=== PATIENT | female | born 1965 | race Caucasian/White ===

== ENCOUNTER 2023-10-23 16:08 | Emergency (ER) | payer MEDICAID ==
[~2023-10-23] VITALS: Ht 172.7 cm; Wt 105.2 kg
[2023-10-23 18:47] VITALS: BP 148/73; PULSE 80; RESP 18; TEMP 98.1; O2SAT 96
[2023-10-23] MEDS: KETOROLAC TROMETH 60MG/2ML VIAL IM ONE (19:09)
== END 2023-10-23 19:56 | disposition home or self-care (01) ==
LOC: ER 16:08
DX: S46.001A Unspecified injury of muscle(s) and tendon(s) of the rotator cuff of right shoulder, initial encounter (principal); E11.9 Type 2 diabetes mellitus without complications; I10 Essential (primary) hypertension; M54.2 Cervicalgia; X58.XXXA Exposure to other specified factors, initial encounter; Y93.89 Activity, other specified; Y92.89 Other specified places as the place of occurrence of the external cause; Y99.8 Other external cause status
CPT/HCPCS: 96372; 99283; J1885

== ENCOUNTER 2025-01-21 08:45 | Emergency (ER) | payer MEDICAID ==
[~2025-01-21] VITALS: Ht 172.7 cm; Wt 99.5 kg
--- NOTE | 2025-01-21 09:54 | ED.PDOC ---
GI ASSESSMENT HPI Comments 59 year old female presents to the ED with chief complaint. Patient reports that she has been experiencing constant LUQ abdominal pain with associated radiation to the left side for the past week. Patient states she has history of pancreatitis and her pain is similar to before. Patient denies any N/V/D, dizziness, fever, chills, or SOB. Chief Complaint: Abdominal Pain Time Seen by MD: 09:41 Reviewed Notes: Nurses Notes, Medications, Allergies Allergies: Coded Allergies: NO KNOWN ALLERGIES (Unverified , 01/21/25) Information Source: Patient Mode of Arrival: Ambulatory Timing: Days Past Medical History PAST MEDICAL HISTORY: DM, HTN Past Medical History (Other): Pancreatitis Surgical History: Denies all surgeries RABIES INSPECTOR History: No Pertinent RABIES INSPECTOR History Family History Family History: Reviewed,noncontributory to illness Social History Smoker: Non-Smoker Alcohol: Denies ETOH Use Drugs: Denies Drug Use Lives In: Home Constitutional: denies: chills, diaphoresis, fatigue, fever, malaise, sweats, weakness, others EENTM: denies: blurred vision, double vision, ear bleeding, ear discharge, ear drainage, ear pain, ear ringing, eye pain, eye redness, hearing loss, mouth pain, mouth swelling, nasal discharge, nose bleeding, nose congestion, nose pain, photophobia, tearing, throat pain, throat swelling, voice changes, others Respiratory: denies: cough, hemoptysis, orthopnea, SOB at rest, shortness of breath, SOB with excertion, stridor, wheezing, others Cardiovascular: denies: chest pain, dizzy spells, diaphoresis, Dyspnea on exertion, edema, irregular heart beat, left arm pain, lightheadedness, palpitations, PND, syncope, others Gastrointestinal: reports: abdominal pain; denies: abdomen distended, blood streaked bowels, constipated, diarrhea, dysphagia, difficulty swallowing, hematemesis, melena, nausea, poor appetite, poor fluid intake, rectal bleeding, rectal pain, vomiting, others Genitourinary: reports: flank pain; denies: abnormal vagina bleeding, burning, dyspareunia, dysuria, frequency, hematuria, incontinence, pain, , vagina discharge, urgency, others Neurological: denies: dizziness, fainting, headache, left sided numbness, left sided weakness, numbness, paresthesia, pre-existing deficit, right sided numbness, right sided weakness, seizure, speech problems, tingling, tremors, weakness, others Musculoskeletal: denies: back pain, gout, joint pain, joint swelling, muscle pain, muscle stiffness, neck pain, others Integumetry: denies: bruises, change in color, change in hair/nails, dryness, laceration, lesions, lumps, rash, wounds, others Allergic/Immunocompromised: denies: Difficulty Healing, Frequent Infections, Hives, Itching, others Hematologic/Lymphatic: denies: anemia, blood clots, easy bleeding, easy bruising, swollen glands, others Endocrine: denies: excessive hunger, excessive sweating, excessive thirst, excessive urination, flushing, intolerance to cold, intolerance to heat, unexplained weight gain, unexplained weight loss, others Psychiatric: denies: anxiety, bipolar disorder, depression, hopeless, panic disorder, schizophrenia, sleepless, suicidal, others All Other Systems: Reviewed and Negative Physical Exam General Appearance: No Apparent Distress, Normal HEENT: Normal ENT Inspection, PERRL/EOMI Neck: Full Range of Motion, Non-Tender, Normal, Normal Inspection Respiratory: Chest Non-Tender, Lungs Clear, No Accessory Muscle Use, No Respiratory Distress, Normal Breath Sounds Cardiovascular: No Edema, No JVD, No Murmur, No Gallop, Normal Peripheral Pulses, Regular Rate/Rhythm Breast Exam: Deferred Gastrointestinal: No Organomegaly, Non Tender, No Pulsatile Mass, Normal Bowel Sounds, Soft Genitalia: Deferred Pelvic: Deferred Rectal: Deferred Extremities: No calf tenderness, Normal capillary refill, Normal inspection, Normal range of motion, Non-tender, No pedal edema Musculoskeletal : Apperance: Normal Neurologic: Alert, therapeutic massage technician II-XII nml as Tested, No Motor Deficits, Normal Affect, Normal Mood, No Sensory Deficits Cerebellar Function: Normal Reflexes: Normal Skin: Dry, Normal Color, Warm Lymphatic: No Adenopathy Was a procedure done? Was a procedure done?: No GI differential Dx Differential Diagnosis: UTI, Urolithiasis, Dehydration, Electrolyte Imbalance Other Differential Diagnosis Pancreatitis X-Ray, Labs, Meds, VS Vital Signs Date Time Temp Pulse Resp B/P (MAP) Pulse Ox O2 Delivery O2 Flow Rate FiO2 01/21/25 11:18 69 18 144/84 01/21/25 11:03 98.1 69 18 144/84 (104) 97 98.1 01/21/25 09:28 98.2 69 16 160/78 (105) 97 98.2 01/21/25 09:15 98.2 71 18 149/80 (103) 97 98.2 Lab Test 01/21/25 10:40 01/21/25 09:04 01/21/25 08:56 Range/Units White Blood Count 8.0 4.4-10.8 10^3/uL Red Blood Count 4.58 4.0-5.20 10^6/uL Hemoglobin 15.2 12.2-16.2 g/dL Hematocrit 44.3 36.0-46.0 % Mean Corpuscular Volume 96.6 80.0-100.0 fL Mean Corpuscular Hemoglobin 33.1 H 28.0-32.0 pg Mean Corpuscular Hemoglobin Concent 34.2 32.0-36.0 g/dL Red Cell Distribution Width 13.3 11.8-14.3 % Platelet Count 213 140-450 10^3/uL Mean Platelet Volume 9.1 6.9-10.8 fL Neutrophils (%) (Auto) 55.1 37.0-80.0 % Lymphocytes (%) (Auto) 33.6 10.0-50.0 % Monocytes (%) (Auto) 8.9 0.0-12.0 % Eosinophils (%) (Auto) 1.7 0.0-7.0 % Basophils (%) (Auto) 0.7 0.0-2.0 % Neutrophils # (Auto) 4.4 1.6-8.6 10 ^3/uL Lymphocytes # (Auto) 2.7 0.4-5.4 10 ^3/uL Monocytes # (Auto) 0.7 0-1.3 10 ^3/uL Eosinophils # (Auto) 0.1 0-0.8 10 ^3/uL Basophils # (Auto) 0.1 0-0.2 10 ^3/uL Nucleated Red Blood Cells 0.1 % Sodium Level 136 136-145 mmol/L Potassium Level 4.8 3.5-5.1 mmol/L Chloride Level 102 98-107 mmol/L Carbon Dioxide Level 28 20-31 mmol/L Anion Gap 6 5-15 Blood Urea Nitrogen 22 9-23 mg/dL Creatinine 0.88 0.550-1.02 mg/dL Glomerular Filtration Rate Calc 75 >90 mL/min BUN/Creatinine Ratio 25.0 H 10.0-20.0 Serum Glucose 143 H 74-106 mg/dL Calcium Level 9.4 8.7-10.4 mg/dL Magnesium Level 2.0 1.6-2.6 mg/dL Total Bilirubin 0.4 0.2-1.0 mg/dL Aspartate Amino Transferase (AST) 15 13-40 U/L Alanine Aminotransferase (ALT) 15 7-40 U/L Alkaline Phosphatase 62 46-116 U/L Total Protein 7.8 5.7-8.2 g/dL Albumin 4.5 3.2-4.8 g/dL Lipase 45 12-53 U/L Urine Color Light-yellow Yellow Urine Clarity Turbid H Clear Urine pH 6.5 5.0-9.0 Urine Specific [place] 1.019 1.001-1.035 Urine Protein Trace H Negative Urine Ketones Negative Negative Urine Blood Negative Negative /uL Urine Nitrite 2+ H Negative Urine Bilirubin Negative Negative Urine Urobilinogen Normal Negative mg/dL Urine Leukocyte Esterase Negative Negative /uL Urine RBC 2 0 - 4 /hpf Urine Microscopic WBC 4 0-5 /HPF Urine Squamous Epithelial Cells Few <5 /hpf Urine Bacteria None seen None Seen /hpf Urine Mucus Few None Seen Urine Glucose Normal Normal mg/dL POC Glucose 195 H 70-106 mg/dl Current Medications Medications (Trade) Dose Ordered Sig/Dayan Route Start Time Stop Time Status Last Admin Metoclopramide HCl (Reglan Injection) 10 mg ONCE ONCE IV 01/21/25 10:45 01/21/25 10:46 DC 01/21/25 11:18 Morphine Sulfate 2 mg ONCE ONCE IV 01/21/25 10:45 01/21/25 10:46 DC 01/21/25 11:18 Sodium Chloride 500 ml @ 500 mls/hr Q1H ONCE IVB 01/21/25 10:45 01/21/25 11:44 DC 01/21/25 11:19 X-Ray, Labs, Meds, VS Comment Seen in the emergency department eventful patient came in complaining of abdominal pain mostly long the lateral posterior anterior chest wall and also left upper quadrant and left flank she also complains of nausea patient has his tory of diabetes hypertension and pancreatitis Blood sugar 125 Chest x-ray shows cardiomegaly with a pulmonary vascular congestion and bilateral opacities CT abdomen and pelvis is normal no pathology CBC is normal Urine shows 2+ nitrites CMP shows blood sugar of [id number] is negative Lipase 43 Magnesium 2.0 Patient will be discharged home follow up with your PCP Time of 1ST Reevaluation: 10:41 Reevaluation 1ST: Unchanged Time of 2ND Reevaluation: 12:53 Reevaluation 2ND: Improved Consultation: PCP Patient Education/Counseling: Diagnosis, Treatment, Prognosis, Need For Follow Up Family Education/Counseling: Diagnosis, Treatment, Prognosis, Need For Follow Up, No Family Present Departure 1 Departure Time of Disposition: 12:55 Impression: Primary Impression: Left sided abdominal pain Additional Impression: UTI (urinary tract infection) Qualified Codes: N30.00 - Acute cystitis without hematuria Disposition: HOME / SELF CARE / HOMELESS Condition: Fair Additional Instructions: Push fluids and follow up with your PCP e-Prescriptions Metoclopramide Hcl (Reglan) 10 Mg Tab 10 MG PO BID for 10 Days, #20 TAB Prov: JENNIFER HASSAN MD 01/21/25 Naproxen (NAPROSYN TABLET) 500 Mg Tb 1 TAB PO BID for 10 Days, #20 TAB 1 Refill Prov: JENNIFER HASSAN MD 01/21/25 Ciprofloxacin Hcl (Ciprofloxacin Hcl) 500 Mg Tab 1 TAB PO BID for 10 Days, #20 TAB Prov: JENNIFER HASSAN MD 01/21/25 Discharged With: Self Critical Care Note Critical Care Time?: No Stability Stability form required: No Heart Score Heart Score: Heart Score Response (Comments) Value History N/A 0 EKG N/A 0 Age 45-64 1 Risk Factors 1 or 2 risk factors 1 Troponin N/A 0 Total 2 I personally scribed for JENNIFER HASSAN MD ([email or web address]) on 01/21/25 at 09:54. Electronically submitted by Willem Martinez ([email or web address]). I personally scribed for JENNIFER HASSAN MD ([email or web address]) on 01/21/25 at 10:34. Electronically submitted by Willem Martinez ([email or web address]). JENNIFER HASSAN MD January 21, 2025 09:54
[2025-01-21 10:39] LABS: Urine Bacteria None Seen /hpf (None Seen)
[2025-01-21 10:49] LABS: Basophils # (auto) 0.1 10 ^3/uL (0-0.2); Basophils % (auto) 0.7 % (0.0-2.0); Eosinophils # (auto) 0.1 10 ^3/uL (0-0.8); Eosinophils % (auto) 1.7 % (0.0-7.0); Hematocrit 44.3 % (36.0-46.0); Hemoglobin 15.2 g/dL (12.2-16.2); Lymphocytes # (auto) 2.7 10 ^3/uL (0.4-5.4); Lymphocytes % (auto) 33.6 % (10.0-50.0); Mean Corpuscular Hemoglobin 33.1 pg (28.0-32.0); Mean Corpuscular Hgb Conc. 34.2 g/dL (32.0-36.0); Mean Corpuscular Volume 96.6 fL (80.0-100.0); Monocytes # (auto) 0.7 10 ^3/uL (0-1.3); Monocytes % (auto) 8.9 % (0.0-12.0); Neutrophils # (auto) 4.4 10 ^3/uL (1.6-8.6); Neutrophils % (auto) 55.1 % (37.0-80.0); Nucleated Red Blood Cells % 0.1 %; Platelet Count (auto) 213 10^3/uL (140-450); Red Blood Cells 4.58 10^6/uL (4.0-5.20); Red Cell Distribution Width 13.3 % (11.8-14.3)
[2025-01-21 11:02] LABS: Urine Blood Negative /uL (Negative); Urine Clarity Turbid (Clear); Urine Color Light-Yellow (Yellow); Urine Mucus FEW (None Seen); Urine Protein, UAD TRACE (Negative); Urine Specific Gravity 1.019 (1.001-1.035); Urine Squamous Epithelial Cell FEW /hpf (<5); Urine Urobilinogen Normal (Negative); Urine WBC 4 /HPF (0-5); Urine pH 6.5 (5.0-9.0)
[2025-01-21 11:06] LABS: Alanine Aminotransferase 15 U/L (7-40); Albumin 4.5 g/dL (3.2-4.8); Alkaline Phosphatase 62 U/L (46-116); Anion Gap 6 (5-15); Aspartate Aminotransferase 15 U/L (13-40); Blood Urea Nitrogen 22 mg/dL (9-23); Calcium 9.4 mg/dL (8.7-10.4); Carbon Dioxide 28 mmol/L (20-31); Chloride 102 mmol/L (98-107); Lipase 45 U/L (12-53); Potassium 4.8 mmol/L (3.5-5.1); Sodium 136 mmol/L (136-145); Total Protein 7.8 g/dL (5.7-8.2)
[2025-01-21 11:07] LABS: Bilirubin, Total 0.4 mg/dL (0.2-1.0); Glucose 143 mg/dL (74-106)
[2025-01-21] MEDS: METOCLOPRAMIDE HCL 5MG/ml INJ 2ml VIAL IV ONE (11:18)
[2025-01-21] MEDS: MORPHINE SULFATE 4 MG/ML SYR/VIAL IV ONE (11:18)
[2025-01-21] MEDS: SODIUM CHLORIDE 0.9% 500 ML IVB ONE (11:19)
[2025-01-21] MEDS: IOHEXOL 300 MG/ML 100ML BOTTLE IJ ONE (11:50)
--- NOTE | 2025-01-21 12:19 | DVH ---
CHEST RADIOGRAPH Indication: Left chest pain Technique: 2 views chest Comparison: None FINDINGS: The cardiac silhouette is enlarged. The lungs demonstrate perihilar airspace opacities. The pulmonary vasculature is prominent. There is no pleural effusion.. There is no pneumothorax. Aortic atheroscle rotic disease. Moderate thoracic degenerative disc disease. IMPRESSION: 1. Cardiomegaly with pulmonary vascular congestion and bilateral perihilar airspace opacities.
--- NOTE | 2025-01-21 12:32 | DVH ---
Exam: CT CT AB PEL WITH IV CON ONLY History: Acute left abdominal pain TECHNIQUE: Multiple contiguous axial CT images of the abdomen and pelvis were obtained with intraveno us contrast. The images were reformatted to generate coronal and sagittal reconstructions. 100 cc of Omnipaque 350 contrast was injected intravenously. All CT scans at this medical facility are performed using dose modulation techniques as appropriate t o a performed exam including the following:Automated exposure control was utilized; adjustment of the MA and/or KV according to patient size; and use of iterative reconstruction technique. Radiation Dose Information: CT Dose: CTDI volume is 25 mGy. Dose-length product is 1368 mGy*cm Comparison: None FINDINGS: The gallbladder is surgically absent. The liver, pancreas, kidneys, adrenal glands, and spleen appea r within normal limits. There is no evidence of abdominal lymphadenopathy. There is no free fluid or free air. The stomach grossly appears unremarkable. The small and large bowel loops demonstrate normal caliber and distribution. A normal appearing appendix is seen in the right lower quadrant abdomen. There are scattered diverticula in the distal colon without evidence of acute diverticulitis. There are calcified atherosclerotic changes in the abdominal aorta. The IVC appears within normal li mits. The bladder appears within normal limits the degree of distention. The uterus appears unremarkable. T here is no evidence of a pelvic mass or lymphadenopathy. There is no free fluid collection. Lung bases are clear. There is no acute osseous abnormality. IMPRESSION: 1. There is no acute process in the abdomen and pelvis. HS:Y
[2025-01-21] MEDS ORDERED: NAP500T PO (12:59)
[2025-01-21] MEDS ORDERED: CIPR500T4 PO (12:59)
[2025-01-21] MEDS ORDERED: METO-281 PO (12:59)
[2025-01-21 13:01] VITALS: BP 134/69; PULSE 65; RESP 18; TEMP 98.2; O2SAT 96
== END 2025-01-21 13:15 | disposition home or self-care (01) ==
LOC: ER 08:55
DX: N39.0 Urinary tract infection, site not specified (principal); R10.12 Left upper quadrant pain; I10 Essential (primary) hypertension; E11.9 Type 2 diabetes mellitus without complications; Z87.19 Personal history of other diseases of the digestive system
CPT/HCPCS: 36415; 71046; 74177; 80053; 81001; 82947; 83690; 83735; 85025; 96361; 96374; 96375; 99285; J2270; J2765; J7040; Q9967; 82962

== ENCOUNTER 2025-04-22 12:14 | Inpatient (IN) | payer MEDICAID ==
[~2025-04-22] VITALS: Ht 172.7 cm; Wt 94.3 kg
[~2025-04-22 12:14] MED LIST: CIPR500T4 PO; METO-281 PO; NAP500T PO
--- NOTE | 2025-04-22 12:53 | ED.PDOC ---
Musculoskeletal HPI Comments This is a 59 year old female presenting to the ED with chief complaint of left hip injury. Patient reports that she had accidentally slipped and fell in her garage around 2 hours ago, injuring her left hip in the process. Patient relays that she is now unable to ambulate on her own due to the pain and has associated swelling to the left hip region along with an abrasion to her left knee. Patient notes she is not up to date with her Tetanus vaccine. Patient denies any numbness, weakness, head injury, or LOC. Chief Complaint: Fall Injury Time Seen by MD: 12:50 Reviewed Notes: Nurses Notes, Medications, Allergies Allergies: Coded Allergies: NO KNOWN ALLERGIES (Unverified , 01/21/25) Home Meds Active Scripts Metoclopramide Hcl (Reglan) 10 Mg Tab, 10 MG PO BID for 10 Days, #20 TAB Prov:JENNIFER HASSAN MD 01/21/25 Naproxen (NAPROSYN TABLET) 500 Mg Tb, 1 TAB PO BID for 10 Days, #20 TAB 1 Refill Prov:JENNIFER HASSAN MD 01/21/25 Ciprofloxacin Hcl (Ciprofloxacin Hcl) 500 Mg Tab, 1 TAB PO BID for 10 Days, #20 TAB Prov:JENNIFER HASSAN MD 01/21/25 Information Source: Patient, Relative Mode of Arrival: Wheelchair Location: Left Extremity Location: Hip Timing: Hours Prehospital treatment: None Severity: Moderate Able to Move Extremity: Yes Bear Weight: No Pain: Moderate Mechanism: Spontaneous Circumstances: Fall Onset of Symptoms: After Trauma Symptoms: Swelling, Pain DVT Risk Factors: NONE Last Tetanus: > 5 Years Past Medical History PAST MEDICAL HISTORY: DM, High Lipids, HTN Past Medical History (Other): Neuropathy, chronic pancreatitis Surgical History: Cholecystectomy, Denies all surgeries SCARFER OPERATOR History: No Pertinent SCARFER OPERATOR History Family History Family History: Reviewed,noncontributory to illness Social History Smoker: Cigarettes, Less Than 1 Pack/Day Alcohol: Occasionally Drugs: Marijuana Lives In: Home Constitutional: denies: chills, diaphoresis, fatigue, fever, malaise, sweats, weakness, others EENTM: denies: blurred vision, double vision, ear bleeding, ear discharge, ear drainage, ear pain, ear ringing, eye pain, eye redness, hearing loss, mouth pain, mouth swelling, nasal discharge, nose bleeding, nose congestion, nose pain, photophobia, tearing, throat pain, throat swelling, voice changes, others Respiratory: denies: cough, hemoptysis, orthopnea, SOB at rest, shortness of breath, SOB with excertion, stridor, wheezing, others Cardiovascular: denies: chest pain, dizzy spells, diaphoresis, Dyspnea on exertion, edema, irregular heart beat, left arm pain, lightheadedness, palpitations, PND, syncope, others Gastrointestinal: denies: abdomen distended, abdominal pain, blood streaked bowels, constipated, diarrhea, dysphagia, difficulty swallowing, hematemesis, melena, nausea, poor appetite, poor fluid intake, rectal bleeding, rectal pain, vomiting, others Genitourinary: denies: abnormal vagina bleeding, burning, dyspareunia, dysuria, flank pain, frequency, hematuria, incontinence, pain, , vagina discharge, urgency, others Neurological: denies: dizziness, fainting, headache, left sided numbness, left sided weakness, numbness, paresthesia, pre-existing deficit, right sided numbness, right sided weakness, seizure, speech problems, tingling, tremors, weakness, others Musculoskeletal: reports: others (Lt hip pain); denies: back pain, gout, joint pain, joint swelling, muscle pain, muscle stiffness, neck pain Integumetry: denies: bruises, change in color, change in hair/nails, dryness, laceration, lesions, lumps, rash, wounds, others Allergic/Immunocompromised: denies: Difficulty Healing, Frequent Infections, Hives, Itching, others Hematologic/Lymphatic: denies: anemia, blood clots, easy bleeding, easy bruising, swollen glands, others Endocrine: denies: excessive hunger, excessive sweating, excessive thirst, excessive urination, flushing, intolerance to cold, intolerance to heat, unexplained weight gain, unexplained weight loss, others Psychiatric: denies: anxiety, bipolar disorder, depression, hopeless, panic disorder, schizophrenia, sleepless, suicidal, others All Other Systems: Reviewed and Negative Physical Exam General Appearance: Mild Distress, Moderate Distress, Obese HEENT: Normal ENT Inspection, PERRL/EOMI Neck: Full Range of Motion, Non-Tender, Normal, Normal Inspection Respiratory: Chest Non-Tender, Lungs Clear, No Accessory Muscle Use, No Respiratory Distress, Normal Breath Sounds Cardiovascular: No Edema, No JVD, No Murmur, No Gallop, Normal Peripheral Pulses, Regular Rate/Rhythm Breast Exam: Deferred Gastrointestinal: No Organomegaly, Non Tender, No Pulsatile Mass, Normal Bowel Sounds, Soft Genitalia: Deferred Pelvic: Deferred Rectal: Deferred Extremities: No calf tenderness, Normal capillary refill, Normal inspection, Normal range of motion, Non-tender, No pedal edema, Tender, Other (And had a fall in his complaining of left pain to the hip the morbidity is correct with pain) Neurologic: Alert, tallier II-XII nml as Tested, No Motor Deficits, Normal Affect, Normal Mood, No Sensory Deficits Cerebellar Function: Normal Reflexes: Normal Skin: Dry, Normal Color, Warm Peripheral Pulses: 1+ carotid (R), 1+ carotid (L) Lymphatic: No Adenopathy Was a procedure done? Was a procedure done?: No Differential Diagnosis EXT Differential Diagnosis: Fracture, Sprain, Dislocation, Contusion, Strain X-Ray, Labs, Meds, VS Vital Signs Date Time Temp Pulse Resp B/P (MAP) Pulse Ox O2 Delivery O2 Flow Rate FiO2 04/22/25 16:47 84 18 98 Room Air* 0 21 04/22/25 16:30 92 16 156/69 (98) 95 04/22/25 14:47 97.6 87 16 128/72 (90) 96 97.6 04/22/25 12:15 98.6 95 18 135/92 96 98.6 Lab Test 04/22/25 16:27 04/22/25 15:39 04/22/25 13:39 Range/Units POC Glucose 381 H 70-106 mg/dl Prothrombin Time 10.4 9.3-11.8 sec Prothrombin Time INR 0.98 0.9-1.15 Activated Partial Thromboplast Time 24.3 L 24.5-34.5 SEC Sodium Level 130 L 136-145 mmol/L Potassium Level 4.4 3.5-5.1 mmol/L Chloride Level 98 98-107 mmol/L Carbon Dioxide Level 22 20-31 mmol/L Anion Gap 10 5-15 Blood Urea Nitrogen 33 H 9-23 mg/dL Creatinine 1.34 H 0.550-1.02 mg/dL Glomerular Filtration Rate Calc 45 >90 mL/min BUN/Creatinine Ratio 24.6 H 10.0-20.0 Serum Glucose 413 *H 74-106 mg/dL Calcium Level 9.6 8.7-10.4 mg/dL Magnesium Level 1.8 1.6-2.6 mg/dL Total Bilirubin 0.4 0.2-1.0 mg/dL Aspartate Amino Transferase (AST) 22 13-40 U/L Alanine Aminotransferase (ALT) 22 7-40 U/L Alkaline Phosphatase 64 46-116 U/L Total Protein 7.6 5.7-8.2 g/dL Albumin 4.6 3.2-4.8 g/dL White Blood Count 14.0 H 4.4-10.8 10^3/uL Red Blood Count 4.49 4.0-5.20 10^6/uL Hemoglobin 15.2 12.2-16.2 g/dL Hematocrit 43.4 36.0-46.0 % Mean Corpuscular Volume 96.7 80.0-100.0 fL Mean Corpuscular Hemoglobin 33.8 H 28.0-32.0 pg Mean Corpuscular Hemoglobin Concent 34.9 32.0-36.0 g/dL Red Cell Distribution Width 13.5 11.8-14.3 % Platelet Count 202 140-450 10^3/uL Mean Platelet Volume 9.8 6.9-10.8 fL Neutrophils (%) (Auto) 72.7 37.0-80.0 % Lymphocytes (%) (Auto) 20.0 10.0-50.0 % Monocytes (%) (Auto) 6.6 0.0-12.0 % Eosinophils (%) (Auto) 0.4 0.0-7.0 % Basophils (%) (Auto) 0.3 0.0-2.0 % Neutrophils # (Auto) 10.2 H 1.6-8.6 10 ^3/uL Lymphocytes # (Auto) 2.8 0.4-5.4 10 ^3/uL Monocytes # (Auto) 0.9 0-1.3 10 ^3/uL Eosinophils # (Auto) 0.1 0-0.8 10 ^3/uL Basophils # (Auto) 0 0-0.2 10 ^3/uL Nucleated Red Blood Cells 0.1 % Current Medications Medications (Trade) Dose Ordered Sig/Dayan Route Start Time Stop Time Status Last Admin Sodium Chloride 1,000 ml @ 150 mls/hr Q6H40M ONCE IV 04/22/25 15:30 04/22/25 18:06 DC 04/22/25 16:44 Diphtheria/ Tetanus/Acell Pertussis (Boostrix T-Dap) 0.5 ml ONCE ONCE IM 04/22/25 15:30 04/22/25 15:31 DC 04/22/25 16:43 Insulin Human Regular (InsuLIN R) 10 units ONCE ONCE IV 04/22/25 16:45 04/22/25 16:46 DC 04/22/25 16:45 X-Ray, Labs, Meds, VS Comment SEEN IN THE EMERGENCY DEPARTMENT EVENTFUL PATIENT CAME IN BECAUSE OF FALL AND COMPLAINING OF LEFT HIP PAIN PATIENT WITH A HISTORY OF HYPERTENSION DIABETES NEUROPATHY PANCREATITIS HIGH CHOLESTEROL THE PATIENT RECEIVED THE TDAP BECAUSE OF ABRASION TO THE RIGHT KNEE CT OF THE LEFT HIP SHOWS FRACTURED DISPLACED AND COMMINUTED TO THE GREATER TROCHANTER TO THE LEFT HIP CBC 51952 with 72.7% neutrophils with a normal H&H CMP normal except for GFR of 45 Blood pressure 413 Magnesium 1.8 Time of 1ST Reevaluation: 13:50 Reevaluation 1ST: Unchanged Patient Education/Counseling: Diagnosis, Treatment Family Education/Counseling: Diagnosis, Treatment Departure 1 Departure Time of Disposition: 18:40 Impression: Primary Impression: Fall at home Qualified Codes: W19.XXXA - Unspecified fall, initial encounter; Y92.009 - Unspecified place in unspecified non-institutional (private) residence as the place of occurrence of the external cause Additional Impression: Closed left hip fracture Qualified Codes: S72.002A - Fracture of unspecified part of neck of left femur, initial encounter for closed fracture Disposition: ADMITTED INPATIENT Admit to: Tele Condition: Serious Critical Care Note Critical Care Time?: No Stability Stability form required: No Heart Score Heart Score: Heart Score Response (Comments) Value History N/A 0 EKG N/A 0 Age 45-64 1 Risk Factors N/A 0 Troponin N/A 0 Total 1 I personally scribed for JENNIFER HASSAN MD ([email or web address]) on 04/22/25 at 12:53. Electronically submitted by Willem Martinez ([email or web address]). JENNIFER HASSAN MD Apr 22, 2025 12:53
--- NOTE | 2025-04-22 13:36 | DVH ---
CT CT L HIP WITH OUT CONTRAST INDICATION: fall EXAM DATE: 04/22/2025 12:53 PM COMPARISON: None RADIATION DOSE: CTDIvol: 24.76 mGy, DLP: 722.99 mGy*cm PROCEDURE: Helical CT images were obtained of the left hip without intravenous contrast. Sagittal an d coronal reconstructions are provided. ADDITIONAL IMAGES: None FINDINGS: BONES: Comminuted, displaced greater trochanteric fracture. ] JOINT SPACES: Maintained. No joint effusion. SOFT TISSUES: within normal limits. VESSELS: unremarkable. IMPRESSION: Comminuted, displaced greater trochanteric fracture.
[2025-04-22 16:11] LABS: Hematocrit 43.4 % (36.0-46.0); Hemoglobin 15.2 g/dL (12.2-16.2); Mean Corpuscular Hemoglobin 33.8 pg (28.0-32.0); Mean Corpuscular Volume 96.7 fL (80.0-100.0); Nucleated Red Blood Cells % 0.1 %
[2025-04-22 16:20] LABS: Alanine Aminotransferase 22 U/L (7-40); Albumin 4.6 g/dL (3.2-4.8); Alkaline Phosphatase 64 U/L (46-116); Anion Gap 10 (5-15); BUN/Creatinine Ratio 24.6 (10.0-20.0); Blood Urea Nitrogen 33 mg/dL (9-23); Calcium 9.6 mg/dL (8.7-10.4); Carbon Dioxide 22 mmol/L (20-31); Chloride 98 mmol/L (98-107); Magnesium 1.8 mg/dL (1.6-2.6); Potassium 4.4 mmol/L (3.5-5.1); Sodium 130 mmol/L (136-145); Total Protein 7.6 g/dL (5.7-8.2)
[2025-04-22 16:21] LABS: Bilirubin, Total 0.4 mg/dL (0.2-1.0)
[2025-04-22 16:24] LABS: Glucose 413 mg/dL (74-106)
[2025-04-22] MEDS: TETANUS-DIPTH-ACEL PERTUSSIS 0.5ML SYR Tdap IM ONE (16:43)
[2025-04-22] MEDS: SODIUM CHLORIDE 0.9% 1,000 ML IV ONE ×2 (16:44→21:13)
[2025-04-22 16:45] LABS: INR 0.98 (0.9-1.15); Partial Thromboplastin Time 24.3 SEC (24.5-34.5); Prothrombin Time 10.4 sec (9.3-11.8)
[2025-04-22] MEDS: InsuLIN REG 1unit/0.01ml Soln (100units/ml) IV ONE (16:45)
[2025-04-22 16:47] VITALS: PULSE 84; RESP 18; O2SAT 98
[2025-04-22] MEDS ORDERED: ACETAMINOPHEN 325 MG TAB PO PRN (17:00)
[2025-04-22] MEDS: InsuLIN REG 1unit/0.01ml Soln (100units/ml) SC SCH ×2 (17:00→21:10)
[2025-04-22] MEDS ORDERED: ONDANSETRON HCL 4 MG/2 ML VIAL IV ONE (17:00)
[2025-04-22] MEDS ORDERED: DEXTROSE (50%) 50ML SYRG IV PRN (17:00)
[2025-04-22] MEDS ORDERED: DOCUSATE SOD 100 MG CAP PO PRN (17:00)
[2025-04-22] MEDS ORDERED: SODIUM CHLORIDE 0.9% 1,000 ML IV ONE (17:00)
[2025-04-22] MEDS ORDERED: MORPHINE SULFATE 4 MG/ML SYR/VIAL IV ONE (17:00)
--- NOTE | 2025-04-22 17:09 | DVHHP2 ---
Admitting Diagnosis: Fall History of Present Illness This is a 59 year old female presenting to the ED with chief complaint of left hip injury. Patient reports that she had accidentally slipped and fell in her g arage around 2 hours ago, injuring her left hip in the process. Patient relays that she is now unable to ambulate on her own due to the pain and has associated swelling to the left hip region along with an abrasion to her left knee. Patient notes she is not up to date with her Tetanus vaccine. Patient denies any numbness, weakness, head injury, or LOC. PAST MEDICAL HISTORY: DM, High Lipids, HTN Past Medical History (Other): Neuropathy, chronic pancreatitis Surgical History: Cholecystectomy, Denies all surgeries HARD TILE SETTER History: No Pertinent HARD TILE SETTER History Family History Family History: Reviewed,noncontributory to illness Social History Smoker: Cigarettes, Less Than 1 Pack/Day Alcohol: Occasionally Drugs: Marijuana Lives In: Home Allergies: Coded Allergies: NO KNOWN ALLERGIES (Unverified , 01/21/25) Home Meds Active Scripts Metoclopramide Hcl (Reglan) 10 Mg Tab, 10 MG PO BID for 10 Days, #20 TAB Prov:JENNIFER HASSAN MD 01/21/25 Naproxen (NAPROSYN TABLET) 500 Mg Tb, 1 TAB PO BID for 10 Days, #20 TAB 1 Refill Prov:JENNIFER HASSAN MD 01/21/25 Ciprofloxacin Hcl (Ciprofloxacin Hcl) 500 Mg Tab, 1 TAB PO BID for 10 Days, #20 TAB Prov:JENNIFER HASSAN MD 01/21/25 Vital Signs Vital Signs Date Time Temp Pulse Resp B/P (MAP) Pulse Ox O2 Delivery O2 Flow Rate FiO2 04/22/25 16:47 84 18 98 Room Air* 0 21 04/22/25 16:30 156/69 (98) 04/22/25 14:47 97.6 97.6 Physical Exam General-59 years old woman, overweight, sitting on wheelchair. Mild distress HEENT-atraumatic normocephalic Heart-regular rate and rhythm Lungs clear to auscultate Abdomen soft nontender nondistended Musculoskeletal-left hip tenderness with the flexion and extension. Limited range of motion due to pain. No cyanosis Neuro-AO x3, strength intact sensation intact. SEPSIS Sepsis Screen Date sepsis recognized/suspect: Apr 22, 2025 Time Sepsis recognized/suspect: 1216 Recent Procedure: No On Antibiotic Therapy: No Respiratory Rate >20: No Heart Rate >90: Yes Temp<36 C (96.8 F) or >38.3 C: No SBP <90 or MAP <65 mmHG: No New Acute Mental Status Change: No Is the patient on CPAP, BIPAP,: No Physician Orders Ct L Hip With Out Contrast (04/22/25 12:51) Urinalysis (04/22/25 15:17) Heplock Iv (04/22/25 15:17) Blood Pressure (04/22/25 15:17) Electrocardigram (04/22/25 15:17) Sodium Chloride 0.9% (04/22/25 15:30) Chest Two Views Routine (04/22/25 16:46) Electrocardigram (04/22/25 16:46) Sequential Compression Device (04/22/25 16:58) Glucose Blood (Accu-Chek Comfort Curve T (04/22/25 17:00) Bedtime Insulin Scale (04/22/25 22:00) Moderate Insulin Ss (04/22/25 17:00) Dextrose 50% Syringe (04/22/25 17:00) NS (04/22/25 17:00) Comprehensive Metabolic Panel (04/23/25 05:00) Comprehensive Metabolic Panel (04/24/25 05:00) Comprehensive Metabolic Panel (04/25/25 05:00) Comprehensive Metabolic Panel (04/26/25 05:00) Comprehensive Metabolic Panel (04/27/25 05:00) Complete Blood Count (04/23/25 05:00) Complete Blood Count (04/24/25 05:00) Complete Blood Count (04/25/25 05:00) Complete Blood Count (04/26/25 05:00) Complete Blood Count (04/27/25 05:00) Admit (04/22/25 16:58) Code Status (04/22/25 16:58) Vital Signs .PER UNIT PROTOCOL (04/22/25 16:58) Review Orders With Adm. (04/22/25 16:58) Encourage Activity As Tolerate (04/22/25 16:58) Sodium Chloride Lock (Saline Lock Ns) (04/22/25 22:00) Docusate Sodium Capsule (Colace Capsule) (04/22/25 17:00) Acetaminophen Tablet (Tylenol Tablet) (04/22/25 17:00) Notify Md Of Changes From Base (04/22/25 16:58) Advance Directive (04/22/25 16:58) Patient Condition (04/22/25 16:58) Allergies (04/22/25 16:58) Hydrocodone-Acet 5/325mg Tab ([place] 5/32 (04/22/25 17:00) Ondansetron Hcl (Zofran) (04/22/25 17:00) Morphine 2mg Iv Q4hprn (04/22/25 17:00) Pantoprazole (Protonix) (04/23/25 10:00) Vital Signs Date Time Temp Pulse Resp B/P (MAP) Pulse Ox O2 Delivery O2 Flow Rate FiO2 04/22/25 16:47 84 18 98 Room Air* 0 21 04/22/25 16:30 92 16 156/69 (98) 95 04/22/25 14:47 97.6 87 16 128/72 (90) 96 97.6 04/22/25 12:15 98.6 95 18 135/92 96 98.6 Laboratory Tests Test 04/22/25 13:39 White Blood Count 14.0 10^3/uL (4.4-10.8) H Medications Medications Dose Ordered Sig/Dayan Route Start Time Stop Time Status Last Admin Dose Admin Diphtheria/ Tetanus/Acell Pertussis 0.5 ml ONCE ONCE IM 04/22/25 15:30 04/22/25 15:31 DC 04/22/25 16:43 Insulin Human Regular 10 units ONCE ONCE IV 04/22/25 16:45 04/22/25 16:46 DC 04/22/25 16:45 Sodium Chloride 1,000 ml @ 150 mls/hr Q6H40M ONCE IV 04/22/25 15:30 04/22/25 22:09 04/22/25 16:44 Results Labs Test 04/22/25 16:27 04/22/25 15:39 04/22/25 13:39 Range/Units POC Glucose 381 H 70-106 mg/dl Prothrombin Time 10.4 9.3-11.8 sec Prothrombin Time INR 0.98 0.9-1.15 Activated Partial Thromboplast Time 24.3 L 24.5-34.5 SEC Sodium Level 130 L 136-145 mmol/L Potassium Level 4.4 3.5-5.1 mmol/L Chloride Level 98 98-107 mmol/L Carbon Dioxide Level 22 20-31 mmol/L Anion Gap 10 5-15 Blood Urea Nitrogen 33 H 9-23 mg/dL Creatinine 1.34 H 0.550-1.02 mg/dL Glomerular Filtration Rate Calc 45 >90 mL/min BUN/Creatinine Ratio 24.6 H 10.0-20.0 Serum Glucose 413 *H 74-106 mg/dL Calcium Level 9.6 8.7-10.4 mg/dL Magnesium Level 1.8 1.6-2.6 mg/dL Total Bilirubin 0.4 0.2-1.0 mg/dL Aspartate Amino Transferase (AST) 22 13-40 U/L Alanine Aminotransferase (ALT) 22 7-40 U/L Alkaline Phosphatase 64 46-116 U/L Total Protein 7.6 5.7-8.2 g/dL Albumin 4.6 3.2-4.8 g/dL White Blood Count 14.0 H 4.4-10.8 10^3/uL Red Blood Count 4.49 4.0-5.20 10^6/uL Hemoglobin 15.2 12.2-16.2 g/dL Hematocrit 43.4 36.0-46.0 % Mean Corpuscular Volume 96.7 80.0-100.0 fL Mean Corpuscular Hemoglobin 33.8 H 28.0-32.0 pg Mean Corpuscular Hemoglobin Concent 34.9 32.0-36.0 g/dL Red Cell Distribution Width 13.5 11.8-14.3 % Platelet Count 202 140-450 10^3/uL Mean Platelet Volume 9.8 6.9-10.8 fL Neutrophils (%) (Auto) 72.7 37.0-80.0 % Lymphocytes (%) (Auto) 20.0 10.0-50.0 % Monocytes (%) (Auto) 6.6 0.0-12.0 % Eosinophils (%) (Auto) 0.4 0.0-7.0 % Basophils (%) (Auto) 0.3 0.0-2.0 % Neutrophils # (Auto) 10.2 H 1.6-8.6 10 ^3/uL Lymphocytes # (Auto) 2.8 0.4-5.4 10 ^3/uL Monocytes # (Auto) 0.9 0-1.3 10 ^3/uL Eosinophils # (Auto) 0.1 0-0.8 10 ^3/uL Basophils # (Auto) 0 0-0.2 10 ^3/uL Nucleated Red Blood Cells 0.1 % Primary Diagnosis Left hip fracture Fall mechanical Plan Regular diet NPO after midnight Pain control Antiemetic Orthopedic surgery consult with a in ED. follow their recommendation Insulin sliding scale Hydralazine p.r.n. SCD for DVT prophylaxis PPI for GI prophylaxis IV fluids Full code Plan discussed with: Patient Date of Service: Apr 22, 2025 Billing Provider: PITO WOODS MD Common Visit Codes: [id number] INP/OBS CARE (MOD) PITO WOODS MD Apr 22, 2025 17:09
--- NOTE | 2025-04-22 17:35 | DVH ---
Chest x-ray PA and lateral views Comparison: 01/21/2025 CLINICAL INDICATION: Fractured hip FINDINGS: Heart size is normal. Aorta is slightly tortuous. No infiltrates or effusions. No bony thor acic abnormalities. IMPRESSION: 1. No acute cardiopulmonary pathology
[2025-04-22 18:30] VITALS: RESP 18
[2025-04-22] MEDS: ACCU-CHEK COMFORT CURVE STRIP VI SCH (18:30)
[2025-04-22] MEDS: ONDANSETRON HCL 4 MG/2 ML VIAL IV PRN (18:41)
[2025-04-22] MEDS: MORPHINE SULFATE INJ 2 MG/ml SYRG IV PRN (18:55)
[2025-04-22 20:00] VITALS: RESP 18; O2SAT 95
[2025-04-22] MEDS: SODIUM CHLOR 0.9% PF (SALINE LOCK) 10ML VIAL/SYR IV SCH (21:10)
[2025-04-22] MEDS: HYDROcodone-ACET 5/325MG TAB PO PRN (21:11)
[2025-04-23] VITALS (8 sets, daily range): BP systolic 119–164; BP diastolic 76–90; PULSE 64–74; RESP 17–20; TEMP 96.8–98.2; O2SAT 93–97
[2025-04-23 07:14] LABS: Hematocrit 40.3 % (36.0-46.0); Hemoglobin 13.7 g/dL (12.2-16.2); Mean Corpuscular Hemoglobin 32.8 pg (28.0-32.0); Mean Corpuscular Volume 96.5 fL (80.0-100.0); Nucleated Red Blood Cells % 0.1 %
[2025-04-23 07:26] LABS: Albumin 4.0 g/dL (3.2-4.8); Alkaline Phosphatase 64 U/L (46-116); Anion Gap 9 (5-15); BUN/Creatinine Ratio 27.3 (10.0-20.0); Bilirubin, Total 0.6 mg/dL (0.2-1.0); Blood Urea Nitrogen 21 mg/dL (9-23); Carbon Dioxide 22 mmol/L (20-31); Chloride 104 mmol/L (98-107); Potassium 3.8 mmol/L (3.5-5.1); Total Protein 6.9 g/dL (5.7-8.2)
[2025-04-23 07:29] LABS: Alanine Aminotransferase 55 U/L (7-40); Calcium 8.6 mg/dL (8.7-10.4); Glucose 223 mg/dL (74-106); Sodium 135 mmol/L (136-145)
[2025-04-23] MEDS: PANTOPRAZOLE 40 MG/10 ML VIAL INJ IV SCH (09:46)
[2025-04-23] MEDS ORDERED: DAPA1TAB4 PO (11:38)
[2025-04-23] MEDS ORDERED: HYDR25TA4 PO (11:39)
[2025-04-23] MEDS ORDERED: GABA-339 PO (11:40)
[2025-04-23] MEDS ORDERED: MELO15TA29 PO (11:40)
[2025-04-23] MEDS ORDERED: ATOR20TA PO (11:41)
[2025-04-23] MEDS ORDERED: FLUO40CA PO (11:41)
[2025-04-23] MEDS ORDERED: LOSA-535 PO (11:42)
--- NOTE | 2025-04-23 13:44 | DVHPN2 ---
Reviewed: Care Plan, H&P, Labs, Medications, Previous Orders, Radiology Changes from previous H/P or p: No Changes Objective Vitals Vital Signs Date Time Temp Pulse Resp B/P (MAP) Pulse Ox O2 Delivery O2 Flow Rate FiO2 04/23/25 13:00 98.0 66 19 119/83 (95) 95 98.0 04/23/25 08:00 Room Air* 0 21 Intake/Output Intake and Output 04/23/25 07:00 Intake Total 300 ml Balance 300 ml Intake Oral 300 ml # Voids 3 Medications Current Medications Medications Dose Ordered Sig/Dayan Route Start Time Stop Time Status Last Admin Dose Admin Diagnostic Test (Pha) 1 strip ACHS 04/22/25 17:00 04/23/25 11:30 1 STRIP Insulin Human Regular HS SC 04/22/25 22:00 04/22/25 21:10 8 UNITS Insulin Human Regular AC SC 04/22/25 17:00 04/23/25 11:20 3 UNITS Dextrose 50 ml UD PRN IV 04/22/25 17:00 Sodium Chloride 10 ml Q8HR IV 04/22/25 22:00 04/23/25 06:24 10 ML Docusate Sodium 100 mg BIDPRN PRN PO 04/22/25 17:00 Acetaminophen 650 mg Q6HP PRN PO 04/22/25 17:00 Acetaminophen/ Hydrocodone Bitart 1 tab Q4HP PRN PO 04/22/25 17:00 04/23/25 13:27 1 TAB Ondansetron HCl 4 mg Q4HP PRN IV 04/22/25 17:00 04/22/25 18:41 4 MG Morphine Sulfate 2 mg Q4HPRN PRN IV 04/22/25 17:00 04/23/25 09:47 2 MG Pantoprazole Sodium 40 mg DAILY IV 04/23/25 10:00 04/23/25 09:46 40 MG Laboratory Results Laboratory Tests 04/23/25 06:18 Chemistry Test 04/22/25 15:39 04/23/25 06:18 Albumin 4.6 g/dL (3.2-4.8) 4.0 g/dL (3.2-4.8) Calcium Level 9.6 mg/dL (8.7-10.4) 8.6 mg/dL (8.7-10.4) L Magnesium Level 1.8 mg/dL (1.6-2.6) Total Protein 7.6 g/dL (5.7-8.2) 6.9 g/dL (5.7-8.2) Coagulation Test 04/22/25 15:39 Prothrombin Time 10.4 sec (9.3-11.8) Prothrombin Time INR 0.98 (0.9-1.15) Activated Partial Thromboplast Time 24.3 SEC (24.5-34.5) L LFT Test 04/22/25 15:39 04/23/25 06:18 Alanine Aminotransferase (ALT) 22 U/L (7-40) 55 U/L (7-40) H Alkaline Phosphatase 64 U/L (46-116) 64 U/L (46-116) Aspartate Amino Transferase (AST) 22 U/L (13-40) 94 U/L (13-40) H Total Bilirubin 0.4 mg/dL (0.2-1.0) 0.6 mg/dL (0.2-1.0) Labs and/or images reviewed: Labs reviewed by me, Image(s) reviewed by me Assessment/Plan Assessment/Plan Acute fracture greater trochanter left femur: Consult for pain medications Uncontrolled diabetes blood sugar 413: Insulin sliding scale, we will check A1c Hypertension Hypercholesterolemia Sepsis with elevated white count 22152 Acute hyponatremia sodium 130: IV fluids History of chronic pancreatitis Peripheral neuropathy Time spent 50 minutes Advanced care planning time 20 minutes Patient is full code Plan discussed with: Patient My Orders Orders - NEGRITA ALARCON MD Procedure Category Date Status Time Hemoglobin A1c LAB 04/23/25 Logged 13:39 * Orthopedic Consult CONS 04/23/25 Verified 13:40 Date of Service: Apr 23, 2025 Billing Provider: NEGRITA ALARCON MD Common Visit Codes: [id number] INP/OBS CARE(HIGH) Secondary Visit Codes: [id number] CARE PLAN 30 MINUTES NEGRITA ALARCON MD Apr 23, 2025 13:44
--- NOTE | 2025-04-23 17:31 | DVHINCON2 ---
Date of service: Apr 23, 2025 Reason for Consultation Left hip fracture History of Present Illness Mrs. Huber is a 59-year-old female who was brought to the hospital due to a left hip injury. Patient reports that she had an accidental slip and fall in her garage yesterday when she was trying to put away some groceries when she slipped on some bottles on the floor causing her to fall onto her left side and has been having pain to her left hip and has having difficulty ambulating since the fall. Patient denied any head trauma, loss of consciousness, chest pain, shortness of breath, nausea, vomiting, fever, or chills. Patient was otherwise feeling well denying any other complaints or concerns during today's evaluation. Past Medical History Hypertension, diabetes, hyperlipidemia, neuropathy, chronic pancreatitis Past Surgical History Cholecystectomy Family History Noncontributory Social History Patient admits to occasional alcohol use, less than one pack of cigarette smok ing a day, occasional marijuana use. Allergies: Coded Allergies: NO KNOWN ALLERGIES (Unverified , 01/21/25) Home Meds Active Scripts Metoclopramide Hcl (Reglan) 10 Mg Tab, 10 MG PO BID for 10 Days, #20 TAB Prov:JENNIFER HASSAN MD 01/21/25 Naproxen (NAPROSYN TABLET) 500 Mg Tb, 1 TAB PO BID for 10 Days, #20 TAB 1 Refill Prov:JENNIFER HASSAN MD 01/21/25 Ciprofloxacin Hcl (Ciprofloxacin Hcl) 500 Mg Tab, 1 TAB PO BID for 10 Days, #20 TAB Prov:JENNIFER HASSAN MD 01/21/25 Reported Medications Losartan Potassium (Losartan Potassium) 100 Mg Tab, 100 MG PO, TAB 04/23/25 Fluoxetine Hcl (Fluoxetine Hcl) 40 Mg Cap, 50 MG PO, CAP 04/23/25 Atorvastatin Calcium (Lipitor) 20 Mg Tab, 1 TAB PO DAILY, #90 TAB 1 Refill 04/23/25 Meloxicam (Meloxicam) 15 Mg Tab, 1 TAB PO DAILY, #30 TAB 2 Refills 04/23/25 Gabapentin (Gabapentin) 600 Mg Tab, 600 MG PO, TAB 04/23/25 Hydrochlorothiazide (Hydrochlorothiazide) 25 Mg Tab, 50 MG PO, TAB 04/23/25 Dapagliflozin Propanediol (Farxiga) 10 Mg Tab, 10 MG PO, TAB 04/23/25 Current Medications Current Medications Medications (Trade) Dose Ordered Sig/Dayan Route PRN Reason Start Time Stop Time Status Last Admin Insulin Human Regular (InsuLIN R) HS SC 04/22/25 22:00 04/22/25 21:10 Sodium Chloride (Saline Lock Ns) 10 ml Q8HR IV 04/22/25 22:00 04/23/25 14:00 Pantoprazole Sodium (Protonix) 40 mg DAILY IV 04/23/25 10:00 04/23/25 09:46 Review of Systems 10 point review of systems negative except as per HPI Vital Signs Vital Signs Date Time Temp Pulse Resp B/P (MAP) Pulse Ox O2 Delivery O2 Flow Rate FiO2 04/23/25 17:20 66 18 119/83 04/23/25 17:00 98.0 94 98.0 04/23/25 08:00 Room Air* 0 21 Physical Exam General appearance: A&O x4 in no acute distress HEENT: Normal ENT inspection, pharynx normal, TMs normal Neck: Full range of motion, nontender, normal inspection Respiratory: Chest nontender, without accessory muscle use, no respiratory distress Cardiovascular: No edema, no JVD, normal peripheral pulses Gastrointestinal: Soft, nontender, no organomegaly. Musculoskeletal: Left hip range of motion grossly intact with pain on slight movement, no calf tenderness, normal capillary refill, no pedal edema, neurovascularly intact. Skin: Dry, normal color, warm Lymphatic: No adenopathy Labs/Diagnostic Data Labs Test 04/23/25 17:00 04/23/25 06:18 04/22/25 15:39 Range/Units POC Glucose 340 H 70-106 mg/dl White Blood Count 9.5 # 4.4-10.8 10^3/uL Red Blood Count 4.18 4.0-5.20 10^6/uL Hemoglobin 13.7 12.2-16.2 g/dL Hematocrit 40.3 36.0-46.0 % Mean Corpuscular Volume 96.5 80.0-100.0 fL Mean Corpuscular Hemoglobin 32.8 H 28.0-32.0 pg Mean Corpuscular Hemoglobin Concent 34.0 32.0-36.0 g/dL Red Cell Distribution Width 13.3 11.8-14.3 % Platelet Count 160 140-450 10^3/uL Mean Platelet Volume 9.6 6.9-10.8 fL Neutrophils (%) (Auto) 66.1 37.0-80.0 % Lymphocytes (%) (Auto) 22.9 10.0-50.0 % Monocytes (%) (Auto) 9.0 0.0-12.0 % Eosinophils (%) (Auto) 1.6 0.0-7.0 % Basophils (%) (Auto) 0.4 0.0-2.0 % Neutrophils # (Auto) 6.3 1.6-8.6 10 ^3/uL Lymphocytes # (Auto) 2.2 0.4-5.4 10 ^3/uL Monocytes # (Auto) 0.9 0-1.3 10 ^3/uL Eosinophils # (Auto) 0.1 0-0.8 10 ^3/uL Basophils # (Auto) 0 0-0.2 10 ^3/uL Nucleated Red Blood Cells 0.1 % Sodium Level 135 #L 136-145 mmol/L Potassium Level 3.8 3.5-5.1 mmol/L Chloride Level 104 98-107 mmol/L Carbon Dioxide Level 22 20-31 mmol/L Anion Gap 9 5-15 Blood Urea Nitrogen 21 # 9-23 mg/dL Creatinine 0.77 # 0.550-1.02 mg/dL Glomerular Filtration Rate Calc 88 >90 mL/min BUN/Creatinine Ratio 27.3 H 10.0-20.0 Serum Glucose 223 H 74-106 mg/dL Hemoglobin A1c 10.6 H <5.7 % A1C Calcium Level 8.6 L 8.7-10.4 mg/dL Total Bilirubin 0.6 0.2-1.0 mg/dL Aspartate Amino Transferase (AST) 94 H 13-40 U/L Alanine Aminotransferase (ALT) 55 H 7-40 U/L Alkaline Phosphatase 64 46-116 U/L Total Protein 6.9 5.7-8.2 g/dL Albumin 4.0 3.2-4.8 g/dL Prothrombin Time 10.4 9.3-11.8 sec Prothrombin Time INR 0.98 0.9-1.15 Activated Partial Thromboplast Time 24.3 L 24.5-34.5 SEC Magnesium Level 1.8 1.6-2.6 mg/dL Left hip CT scan reviewed and demonstrated: Comminuted, displaced greater trochanteric fracture. Assessment Left hip displaced and comminuted greater trochanteric fracture Plan/Recommendation I had a lengthy discussion with the patient and after discussing her case and reviewing her imaging studies with Dr. Martines we have recommended against any surgical intervention at this time and instead advised to continue with conser vative treatment with pain control and advised the patient to remain weight- bearing as tolerated with the assistance of a walker. I instructed the patient that she may remain partially weight-bearing for the next two weeks and then may gradually resume weight-bearing as tolerated with the assistance of a walker for an additional four weeks. I instructed the patient to follow up with our office on an outpatient basis for further imaging studies and evaluation. She understood and agreed. Thank you for allowing us to participate in the care of your patient. Plan discussed with: Patient, Son EMILY SAMPSON Marika GABRIEL Apr 23, 2025 17:31
--- NOTE | 2025-04-23 23:44 | DVHINCON2 ---
Date of service: Apr 23, 2025 Referring Physician [place] Reason for Consultation Cardiac clearance for possible hip surgery History of Present Illness This is a 59 year old female with a PMH of DM, High Lipids, HTN who presented to the ED with complaint sof left hip injury. Patient reports that she had accidentally slipped and fell in her garage around 2 hours [employer], injuring her left hip in the process. Patient states that she is now unable to ambulate on her own due to the pain and has associated swelling to the left hip region along with an abrasion to her left knee. Patient notes she is not up to date with her Tetanus vaccine. Patient denies any numbness, weakness, head injury, or LOC. WBC 14, GLUC 340, CA 8.6, AST 94, ALT 55. Left hip CT shows a comminuted, displaced greater trochanteric fracture. Patient was admitted to the hospital. I am asked to consult on this patient. Allergies: Coded Allergies: NO KNOWN ALLERGIES (Unverified , 01/21/25) Home Meds Active Scripts Metoclopramide Hcl (Reglan) 10 Mg Tab, 10 MG PO BID for 10 Days, #20 TAB Prov:JENNIFER HASSAN MD 01/21/25 Naproxen (NAPROSYN TABLET) 500 Mg Tb, 1 TAB PO BID for 10 Days, #20 TAB 1 Refill Prov:JENNIFER HASSAN MD 01/21/25 Ciprofloxacin Hcl (Ciprofloxacin Hcl) 500 Mg Tab, 1 TAB PO BID for 10 Days, #20 TAB Prov:JENNIFER HASSAN MD 01/21/25 Reported Medications Losartan Potassium (Losartan Potassium) 100 Mg Tab, 100 MG PO, TAB 04/23/25 Fluoxetine Hcl (Fluoxetine Hcl) 40 Mg Cap, 50 MG PO, CAP 04/23/25 Atorvastatin Calcium (Lipitor) 20 Mg Tab, 1 TAB PO DAILY, #90 TAB 1 Refill 04/23/25 Meloxicam (Meloxicam) 15 Mg Tab, 1 TAB PO DAILY, #30 TAB 2 Refills 04/23/25 Gabapentin (Gabapentin) 600 Mg Tab, 600 MG PO, TAB 04/23/25 Hydrochlorothiazide (Hydrochlorothiazide) 25 Mg Tab, 50 MG PO, TAB 04/23/25 Dapagliflozin Propanediol (Farxiga) 10 Mg Tab, 10 MG PO, TAB 04/23/25 Current Medications Current Medications Medications (Trade) Dose Ordered Sig/Dayan Route PRN Reason Start Time Stop Time Status Last Admin Insulin Human Regular (InsuLIN R) HS SC 04/22/25 22:00 04/22/25 21:10 Sodium Chloride (Saline Lock Ns) 10 ml Q8HR IV 04/22/25 22:00 04/23/25 14:00 Pantoprazole Sodium (Protonix) 40 mg DAILY IV 04/23/25 10:00 04/23/25 09:46 Review of Systems Constitutional: denies: chills, diaphoresis, fatigue, fever, malaise, sweats, weakness, others EENTM: denies: blurred vision, double vision, ear bleeding, ear discharge, ear drainage, ear pain, ear ringing, eye pain, eye redness, hearing loss, mouth pain, mouth swelling, nasal discharge, nose bleeding, nose congestion, nose pain, photophobia, tearing, throat pain, throat swelling, voice changes, others Respiratory: denies: cough, hemoptysis, orthopnea, SOB at rest, shortness of breath, SOB with excertion, stridor, wheezing, others Cardiovascular: denies: chest pain, dizzy spells, diaphoresis, Dyspnea on exertion, edema, irregular heart beat, left arm pain, lightheadedness, palpitations, PND, syncope, others Gastrointestinal: denies: abdomen distended, abdominal pain, blood streaked bowels, constipated, diarrhea, dysphagia, difficulty swallowing, hematemesis, melena, nausea, poor appetite, poor fluid intake, rectal bleeding, rectal pain, vomiting, others Genitourinary: denies: abnormal vagina bleeding, burning, dyspareunia, dysuria, flank pain, frequency, hematuria, incontinence, pain, , vagina discharge, urgency, others Neurological: denies: dizziness, fainting, headache, left sided numbness, left sided weakness, numbness, paresthesia, pre-existing deficit, right sided numbness, right sided weakness, seizure, speech problems, tingling, tremors, weakness, others Musculoskeletal: reports: others (Lt hip pain); denies: back pain, gout, joint pain, joint swelling, muscle pain, muscle stiffness, neck pain Integumetry: denies: bruises, change in color, change in hair/nails, dryness, laceration, lesions, lumps, rash, wounds, others Allergic/Immunocompromised: denies: Difficulty Healing, Frequent Infections, Hives, Itching, others Hematologic/Lymphatic: denies: anemia, blood clots, easy bleeding, easy bruising, swollen glands, others Endocrine: denies: excessive hunger, excessive sweating, excessive thirst, excessive urination, flushing, intolerance to cold, intolerance to heat, unexplained weight gain, unexplained weight loss, others Psychiatric: denies: anxiety, bipolar disorder, depression, hopeless, panic disorder, schizophrenia, sleepless, suicidal, others All Other Systems: Reviewed and Negative Vital Signs Vital Signs Date Time Temp Pulse Resp B/P (MAP) Pulse Ox O2 Delivery O2 Flow Rate FiO2 04/23/25 17:50 66 16 120/86 04/23/25 17:00 98.0 94 98.0 04/23/25 08:00 Room Air* 0 21 Physical Exam GENERAL: Alert and oriented x 3. No acute distress. EYES: PERRL, EOMI. Anicteric. HENT: Moist mucous membranes. LUNGS: Clear to auscultation bilaterally. CARDIOVASCULAR: Regular rate and rhythm. ABDOMEN: Soft, nontender and nondistended. EXTREMITIES: Left hip TTP. NEUROLOGIC: No focal neurological deficits. SKIN: Warm, dry. Labs/Diagnostic Data Labs Test 04/23/25 17:00 04/23/25 06:18 04/22/25 15:39 Range/Units POC Glucose 340 H 70-106 mg/dl White Blood Count 9.5 # 4.4-10.8 10^3/uL Red Blood Count 4.18 4.0-5.20 10^6/uL Hemoglobin 13.7 12.2-16.2 g/dL Hematocrit 40.3 36.0-46.0 % Mean Corpuscular Volume 96.5 80.0-100.0 fL Mean Corpuscular Hemoglobin 32.8 H 28.0-32.0 pg Mean Corpuscular Hemoglobin Concent 34.0 32.0-36.0 g/dL Red Cell Distribution Width 13.3 11.8-14.3 % Platelet Count 160 140-450 10^3/uL Mean Platelet Volume 9.6 6.9-10.8 fL Neutrophils (%) (Auto) 66.1 37.0-80.0 % Lymphocytes (%) (Auto) 22.9 10.0-50.0 % Monocytes (%) (Auto) 9.0 0.0-12.0 % Eosinophils (%) (Auto) 1.6 0.0-7.0 % Basophils (%) (Auto) 0.4 0.0-2.0 % Neutrophils # (Auto) 6.3 1.6-8.6 10 ^3/uL Lymphocytes # (Auto) 2.2 0.4-5.4 10 ^3/uL Monocytes # (Auto) 0.9 0-1.3 10 ^3/uL Eosinophils # (Auto) 0.1 0-0.8 10 ^3/uL Basophils # (Auto) 0 0-0.2 10 ^3/uL Nucleated Red Blood Cells 0.1 % Sodium Level 135 #L 136-145 mmol/L Potassium Level 3.8 3.5-5.1 mmol/L Chloride Level 104 98-107 mmol/L Carbon Dioxide Level 22 20-31 mmol/L Anion Gap 9 5-15 Blood Urea Nitrogen 21 # 9-23 mg/dL Creatinine 0.77 # 0.550-1.02 mg/dL Glomerular Filtration Rate Calc 88 >90 mL/min BUN/Creatinine Ratio 27.3 H 10.0-20.0 Serum Glucose 223 H 74-106 mg/dL Hemoglobin A1c 10.6 H <5.7 % A1C Calcium Level 8.6 L 8.7-10.4 mg/dL Total Bilirubin 0.6 0.2-1.0 mg/dL Aspartate Amino Transferase (AST) 94 H 13-40 U/L Alanine Aminotransferase (ALT) 55 H 7-40 U/L Alkaline Phosphatase 64 46-116 U/L Total Protein 6.9 5.7-8.2 g/dL Albumin 4.0 3.2-4.8 g/dL Prothrombin Time 10.4 9.3-11.8 sec Prothrombin Time INR 0.98 0.9-1.15 Activated Partial Thromboplast Time 24.3 L 24.5-34.5 SEC Magnesium Level 1.8 1.6-2.6 mg/dL Assessment Acute fracture greater trochanter left femur. Uncontrolled diabetes. Hypertension. Hypercholesterolemia. Sepsis. Hyponatremia. History of chronic pancreatitis. Peripheral neuropathy. Plan/Recommendation I agree with your ongoing assessment and care of plan. Morphine and [place] for nunes management. GI prophylactics. Additional plan as per the hospital course. A total of 45 minutes was spent reviewing the patient record, examining the patient, making a diagnostic and therapeutic plan, discussing this plan with medical personnel, following up on diagnostic studies and following the patient for clinical stability excluding any and all procedures. At least 50% of this time was spent in direct, [id number] contact. Plan discussed with: Patient OLVIN DANIEL MD Apr 23, 2025 19:03
[2025-04-24] VITALS (7 sets, daily range): BP systolic 138–158; BP diastolic 73–94; PULSE 64–73; RESP 18–20; TEMP 98–99.4; O2SAT 96–99
[2025-04-24 08:30] LABS: Hematocrit 37.7 % (36.0-46.0); Hemoglobin 13.2 g/dL (12.2-16.2); Mean Corpuscular Hemoglobin 33.4 pg (28.0-32.0); Mean Corpuscular Volume 95.7 fL (80.0-100.0); Nucleated Red Blood Cells % 0.0 %
[2025-04-24 08:46] LABS: Albumin 4.0 g/dL (3.2-4.8); Anion Gap 6 (5-15); BUN/Creatinine Ratio 20.3 (10.0-20.0); Blood Urea Nitrogen 13 mg/dL (9-23); Calcium 8.9 mg/dL (8.7-10.4); Carbon Dioxide 25 mmol/L (20-31); Chloride 106 mmol/L (98-107); Potassium 3.9 mmol/L (3.5-5.1); Sodium 137 mmol/L (136-145); Total Protein 6.5 g/dL (5.7-8.2)
[2025-04-24 08:47] LABS: Alanine Aminotransferase 92 U/L (7-40); Alkaline Phosphatase 121 U/L (46-116); Bilirubin, Total 0.6 mg/dL (0.2-1.0); Glucose 196 mg/dL (74-106)
--- NOTE | 2025-04-24 10:28 | DVHPN2 ---
Reviewed: Care Plan, H&P, Labs, Medications, Previous Orders, Radiology Changes from previous H/P or p: No Changes Objective Vitals Vital Signs Date Time Temp Pulse Resp B/P (MAP) Pulse Ox O2 Delivery O2 Flow Rate FiO2 04/24/25 09:40 69 19 145/87 04/24/25 09:00 98.2 96 98.2 04/24/25 08:00 Room Air* 0 21 Intake/Output Intake and Output 04/24/25 07:00 Intake Total 1020 ml Balance 1020 ml Intake Oral 1020 ml # Voids 8 # Bowel Movements 2 Medications Current Medications Medications Dose Ordered Sig/Dayan Route Start Time Stop Time Status Last Admin Dose Admin Diagnostic Test (Pha) 1 strip ACHS 04/22/25 17:00 04/24/25 06:09 1 STRIP Insulin Human Regular HS SC 04/22/25 22:00 04/23/25 21:44 6 UNITS Insulin Human Regular AC SC 04/22/25 17:00 04/24/25 06:14 6 UNITS Dextrose 50 ml UD PRN IV 04/22/25 17:00 Sodium Chloride 10 ml Q8HR IV 04/22/25 22:00 04/24/25 06:09 10 ML Docusate Sodium 100 mg BIDPRN PRN PO 04/22/25 17:00 Acetaminophen 650 mg Q6HP PRN PO 04/22/25 17:00 Acetaminophen/ Hydrocodone Bitart 1 tab Q4HP PRN PO 04/22/25 17:00 04/24/25 04:47 1 TAB Ondansetron HCl 4 mg Q4HP PRN IV 04/22/25 17:00 04/22/25 18:41 4 MG Morphine Sulfate 2 mg Q4HPRN PRN IV 04/22/25 17:00 04/24/25 09:40 2 MG Pantoprazole Sodium 40 mg DAILY IV 04/23/25 10:00 04/24/25 09:40 40 MG Laboratory Results Laboratory Tests 04/24/25 08:00 Chemistry Test 04/24/25 08:00 Albumin 4.0 g/dL (3.2-4.8) Calcium Level 8.9 mg/dL (8.7-10.4) Total Protein 6.5 g/dL (5.7-8.2) LFT Test 04/24/25 08:00 Alanine Aminotransferase (ALT) 92 U/L (7-40) H Alkaline Phosphatase 121 U/L (46-116) H Aspartate Amino Transferase (AST) 106 U/L (13-40) H Total Bilirubin 0.6 mg/dL (0.2-1.0) Labs and/or images reviewed: Labs reviewed by me, Image(s) reviewed by me Assessment/Plan Assessment/Plan Acute fracture greater trochanter left femur: Consult for appreciated, advised conservative management, no surgery, pain medications as appropriate Uncontrolled diabetes blood sugar 413: Insulin sliding scale, we will check A1c Hypertension Hypercholesterolemia Sepsis with elevated white count 78117 Acute hyponatremia sodium 130: IV fluids History of chronic pancreatitis Peripheral neuropathy Time spent 50 minutes Advanced care planning time 20 minutes Patient is full code Physical Therapy ordered We will DC Sat Plan discussed with: Patient My Orders Orders - NEGRITA ALARCON MD Procedure Category Date Status Time * Orthopedic Consult CONS 04/23/25 Transmitted 13:40 * Cardiology Consult CONS 04/23/25 Transmitted 14:08 Consistent DIET 04/23/25 [facility]Diabetes D[facility] Date of Service: Apr 24, 2025 Billing Provider: NEGRITA ALARCON MD Common Visit Codes: [id number] INP/OBS CARE(HIGH) NEGRITA ALARCON MD Apr 24, 2025 10:28
--- NOTE | 2025-04-24 17:23 | DVHPN2 ---
Progress Note - Dictate Date Seen: Apr 24, 2025 Medical Necessity Reason Pt with a Central, PICC or Fol: No Subjective Patient was seen and evaluated in follow up. Patient is complaining of left hip pain. GLUC 255, AST 106, ALT 92. vital signs Vital Sign Date Time Temp Pulse Resp B/P (MAP) Pulse Ox O2 Delivery O2 Flow Rate FiO2 04/24/25 09:40 69 19 145/87 04/24/25 09:00 98.2 96 98.2 04/24/25 08:00 Room Air* 0 21 Total Intake and Output 04/23/25 04/23/25 04/24/25 15:00 23:00 07:00 Intake Total 300 ml 720 ml Balance 300 ml 720 ml medications Current Medications Medications Dose Ordered Sig/[place]an Route Start Time Stop Time Status Last Admin Dose Admin Diagnostic Test (Pha) 1 strip ACHS 04/22/25 17:00 04/24/25 11:40 1 STRIP Insulin Human Regular HS SC 04/22/25 22:00 04/23/25 21:44 6 UNITS Insulin Human Regular AC SC 04/22/25 17:00 04/24/25 11:41 9 UNITS Dextrose 50 ml UD PRN IV 04/22/25 17:00 Sodium Chloride 10 ml Q8HR IV 04/22/25 22:00 04/24/25 11:00 10 ML Docusate Sodium 100 mg BIDPRN PRN PO 04/22/25 17:00 Acetaminophen 650 mg Q6HP PRN PO 04/22/25 17:00 Acetaminophen/ Hydrocodone Bitart 1 tab Q4HP PRN PO 04/22/25 17:00 04/24/25 11:43 1 TAB Ondansetron HCl 4 mg Q4HP PRN IV 04/22/25 17:00 04/22/25 18:41 4 MG Morphine Sulfate 2 mg Q4HPRN PRN IV 04/22/25 17:00 04/24/25 09:40 2 MG Pantoprazole Sodium 40 mg DAILY IV 04/23/25 10:00 04/24/25 09:40 40 MG objective GENERAL: Alert and oriented x 3. No acute distress. EYES: PERRL, EOMI. Anicteric. HENT: Moist mucous membranes. LUNGS: Clear to auscultation bilaterally. CARDIOVASCULAR: Regular rate and rhythm. ABDOMEN: Soft, nontender and nondistended. EXTREMITIES: Left hip TTP. NEUROLOGIC: No focal neurological deficits. SKIN: Warm, dry. laboratory and microbiology Laboratory Tests 04/24/25 08:00 Test 04/24/25 08:00 Range/Units Serum Glucose 196 H 74-106 mg/dL Problem List Acute fracture greater trochanter left femur. Uncontrolled diabetes. Hypertension. Hypercholesterolemia. Sepsis. Hyponatremia. History of chronic pancreatitis. Peripheral neuropathy. Assessment/Plan Continued all current supportive medical care. Morphine and [place] for nunes management. GI prophylactics. Additional plan as per the hospital course. Plan discussed with: Patient OLVIN DANIEL MD Apr 24, 2025 12:22
[2025-04-25 01:00] VITALS: BP 143/94; PULSE 65; RESP 16; TEMP 98.1; O2SAT 98
[2025-04-25 05:00] VITALS: BP 111/75; PULSE 67; RESP 16; TEMP 98; O2SAT 97
[2025-04-25 07:32] VITALS: PULSE 84; RESP 19; O2SAT 96
[2025-04-25 07:52] LABS: Hematocrit 41.8 % (36.0-46.0); Hemoglobin 14.4 g/dL (12.2-16.2); Mean Corpuscular Hemoglobin 33.5 pg (28.0-32.0); Mean Corpuscular Volume 97.2 fL (80.0-100.0); Nucleated Red Blood Cells % 0.1 %
[2025-04-25 08:08] LABS: Albumin 4.5 g/dL (3.2-4.8); Alkaline Phosphatase 104 U/L (46-116); Anion Gap 6 (5-15); BUN/Creatinine Ratio 17.1 (10.0-20.0); Blood Urea Nitrogen 14 mg/dL (9-23); Calcium 9.3 mg/dL (8.7-10.4); Carbon Dioxide 28 mmol/L (20-31); Chloride 104 mmol/L (98-107); Potassium 4.1 mmol/L (3.5-5.1); Sodium 138 mmol/L (136-145); Total Protein 7.4 g/dL (5.7-8.2)
[2025-04-25 08:09] LABS: Bilirubin, Total 0.6 mg/dL (0.2-1.0)
[2025-04-25 08:10] LABS: Alanine Aminotransferase 65 U/L (7-40); Glucose 266 mg/dL (74-106)
[2025-04-25 08:30] VITALS: BP 156/69; PULSE 71; RESP 16; TEMP 98; O2SAT 98
[2025-04-25] MEDS ORDERED: HYDR-4902 PO (10:21)
--- NOTE | 2025-04-25 10:23 | DVHPN2 ---
Reviewed: Care Plan, H&P, Labs, Medications, Previous Orders, Radiology Changes from previous H/P or p: No Changes Objective Vitals Vital Signs Date Time Temp Pulse Resp B/P (MAP) Pulse Ox O2 Delivery O2 Flow Rate FiO2 04/25/25 08:30 98.0 71 16 156/69 (98) 98 98.0 04/25/25 07:32 Room Air* 0 21 Intake/Output Intake and Output 04/25/25 07:00 Intake Total 1214 ml Output Total 2 ml Balance 1212 ml Intake Oral 1214 ml Output Stool Total 2 ml # Voids 8 Medications Current Medications Medications Dose Ordered Sig/Dayan Route Start Time Stop Time Status Last Admin Dose Admin Diagnostic Test (Pha) 1 strip ACHS 04/22/25 17:00 04/25/25 05:40 1 STRIP Insulin Human Regular HS SC 04/22/25 22:00 04/24/25 21:32 4 UNITS Insulin Human Regular AC SC 04/22/25 17:00 04/25/25 05:41 9 UNITS Dextrose 50 ml UD PRN IV 04/22/25 17:00 Sodium Chloride 10 ml Q8HR IV 04/22/25 22:00 04/25/25 05:41 10 ML Docusate Sodium 100 mg BIDPRN PRN PO 04/22/25 17:00 Acetaminophen 650 mg Q6HP PRN PO 04/22/25 17:00 Acetaminophen/ Hydrocodone Bitart 1 tab Q4HP PRN PO 04/22/25 17:00 04/25/25 06:31 1 TAB Ondansetron HCl 4 mg Q4HP PRN IV 04/22/25 17:00 04/22/25 18:41 4 MG Morphine Sulfate 2 mg Q4HPRN PRN IV 04/22/25 17:00 04/24/25 16:57 2 MG Pantoprazole Sodium 40 mg DAILY IV 04/23/25 10:00 04/24/25 09:40 40 MG Laboratory Results Laboratory Tests 04/25/25 05:44 Chemistry Test 04/25/25 05:44 Albumin 4.5 g/dL (3.2-4.8) Calcium Level 9.3 mg/dL (8.7-10.4) Total Protein 7.4 g/dL (5.7-8.2) LFT Test 04/25/25 05:44 Alanine Aminotransferase (ALT) 65 U/L (7-40) H Alkaline Phosphatase 104 U/L (46-116) Aspartate Amino Transferase (AST) 36 U/L (13-40) Total Bilirubin 0.6 mg/dL (0.2-1.0) Labs and/or images reviewed: Labs reviewed by me, Image(s) reviewed by me Assessment/Plan Assessment/Plan Acute fracture greater trochanter left femur: Consult for appreciated, advised conservative management, no surgery, pain medications as appropriate Uncontrolled diabetes blood sugar 413: Insulin sliding scale, A1c 10.6, diabetic education Hypertension Hypercholesterolemia Sepsis with elevated white count 14301 Acute hyponatremia sodium 130: IV fluids History of chronic pancreatitis Peripheral neuropathy Time spent 50 minutes Advanced care planning time 20 minutes Patient is full code Patient feeling better and wants to go home Patient Does not want any home health or penitentiary placement. Plan discussed with: Patient Date of Service: Apr 25, 2025 Billing Provider: NEGRITA ALARCON MD Common Visit Codes: [id number] INP/OBS CARE(HIGH) NEGRITA ALARCON MD Apr 25, 2025 10:23
--- NOTE | 2025-04-25 10:28 | DVHDS2 ---
Discharge Summary Date of Admission Apr 22, 2025 at 16:58 Date of Discharge: Apr 25, 2025 Admitting Diagnosis Left femur fracture Labs/Diagnostic Data: Laboratory Results Test 04/25/25 05:44 04/25/25 05:29 04/23/25 06:18 04/22/25 15:39 White Blood Count 8.3 10^3/uL (4.4-10.8) Red Blood Count 4.30 10^6/uL (4.0-5.20) Hemoglobin 14.4 g/dL (12.2-16.2) Hematocrit 41.8 % (36.0-46.0) Mean Corpuscular Volume 97.2 fL (80.0-100.0) Mean Corpuscular Hemoglobin 33.5 pg (28.0-32.0) Mean Corpuscular Hemoglobin Concent 34.4 g/dL (32.0-36.0) Red Cell Distribution Width 13.7 % (11.8-14.3) Platelet Count 171 10^3/uL (140-450) Mean Platelet Volume 10.2 fL (6.9-10.8) Neutrophils (%) (Auto) 65.7 % (37.0-80.0) Lymphocytes (%) (Auto) 24.9 % (10.0-50.0) Monocytes (%) (Auto) 7.4 % (0.0-12.0) Eosinophils (%) (Auto) 1.5 % (0.0-7.0) Basophils (%) (Auto) 0.5 % (0.0-2.0) Neutrophils # (Auto) 5.4 10 ^3/uL (1.6-8.6) Lymphocytes # (Auto) 2.1 10 ^3/uL (0.4-5.4) Monocytes # (Auto) 0.6 10 ^3/uL (0-1.3) Eosinophils # (Auto) 0.1 10 ^3/uL (0-0.8) Basophils # (Auto) 0 10 ^3/uL (0-0.2) Nucleated Red Blood Cells 0.1 % Sodium Level 138 mmol/L (136-145) Potassium Level 4.1 mmol/L (3.5-5.1) Chloride Level 104 mmol/L (98-107) Carbon Dioxide Level 28 mmol/L (20-31) Anion Gap 6 (5-15) Blood Urea Nitrogen 14 mg/dL (9-23) Creatinine 0.82 mg/dL (0.550-1.02) Glomerular Filtration Rate Calc 81 mL/min (>90) BUN/Creatinine Ratio 17.1 (10.0-20.0) Serum Glucose 266 mg/dL (74-106) Calcium Level 9.3 mg/dL (8.7-10.4) Total Bilirubin 0.6 mg/dL (0.2-1.0) Aspartate Amino Transferase (AST) 36 U/L (13-40) Alanine Aminotransferase (ALT) 65 U/L (7-40) Alkaline Phosphatase 104 U/L (46-116) Total Protein 7.4 g/dL (5.7-8.2) Albumin 4.5 g/dL (3.2-4.8) POC Glucose 281 mg/dl (70-106) Hemoglobin A1c 10.6 % A1C (<5.7) Prothrombin Time 10.4 sec (9.3-11.8) Prothrombin Time INR 0.98 (0.9-1.15) Activated Partial Thromboplast Time 24.3 SEC (24.5-34.5) Magnesium Level 1.8 mg/dL (1.6-2.6) Other Laboratory Tests 04/25/25 05:44 Brief Hx & Hospital Course: 59-year-old female with a history of hypertension diabetes hypercholesterolemia chronic pancreatitis peripheral neuropathy had a mechanical fall and admitted for fracture greater trochanter left femur seen by orthopedic Dr Garcia advised conservative management no surgery. Blood sugar was high 413 A1c 10.6 uncontrolled diabetes advised appropriate insulin dosages and testing blood sugar 3 times a day patient feels better. Walking received physical therapy and pain medications requesting to be discharged home. Discharged home. She does not want any home health or alf placement He will follow up with the primary Dr and orthopedic in two weeks. Consults/Reason for consult Orthopedic Operations or Procedures CT hip Condition at Discharge: Fair Final Diagnosis/Problems List Acute fracture greater trochanter left femur: Consult for appreciated, advised conservative management, no surgery, pain medications as appropriate Uncontrolled diabetes blood sugar 413: Insulin sliding scale, A1c 10.6, diabetic education Hypertension Hypercholesterolemia Sepsis with elevated white count 18526 Acute hyponatremia sodium 130: IV fluids History of chronic pancreatitis Peripheral neuropathy Discharge Disposition: Home Discharge Instruct/Medications Diet: Cardiac 2g Na,low cholest Activity: Light activity Follow Up/Referral: Follow up with the Orthopedic in two weeks and with your primary Dr Resume all previous home medications Check blood sugar 3 times a day and take insulin appropriately Medications: [place] [facility] Scheduled Atorvastatin Calcium (Lipitor), 1 TAB PO DAILY, (Reported) Ciprofloxacin Hcl (Ciprofloxacin Hcl), 1 TAB PO BID Meloxicam (Meloxicam), 1 TAB PO DAILY, (Reported) Metoclopramide Hcl (Reglan), 10 MG PO BID Naproxen (Naprosyn Tablet), 1 TAB PO BID Scheduled PRN Hydrocodone-Acetaminophen (Hydrocodone Bitartrate/AC 5-325 mg), 1 TAB PO QID PRN Miscellaneous Medications Dapagliflozin Propanediol (Farxiga), 10 MG PO, (Reported) Fluoxetine Hcl (Fluoxetine Hcl), 50 MG PO, (Reported) Gabapentin (Gabapentin), 600 MG PO, (Reported) Hydrochlorothiazide (Hydrochlorothiazide), 50 MG PO, (Reported) Losartan Potassium (Losartan Potassium), 100 MG PO, (Reported) 39 (Time taken for discharge summary 39 minutes) Discharge Statement: "Patient was advised to return to the ER or call 911 if any headaches, dizziness, shortness of breath, chest pain, abdominal pain, bleeding, fevers, or worsening of medical condition. Patient was counseled about treatment plan, medications, possible side effects, patientverbalized understanding. All questions were answered to the best of my ability. This discharge took greater then 30 minutes in planning, reviewing documentation, counseling the patient, and discussing with other team members." ASSESSMENT ASSESSMENT Hospital Course Uneventful Assessment Acute fracture greater trochanter left femur: Consult for Dr.Nayyar mcrae, advised conservative management, no surgery, pain medications as appropriate Uncontrolled diabetes blood sugar 413: Insulin sliding scale, A1c 10.6, diabetic education Hypertension Hypercholesterolemia Sepsis with elevated white count 34113 Acute hyponatremia sodium 130: IV fluids History of chronic pancreatitis Peripheral neuropathy Date of Service: Apr 25, 2025 Billing Provider: NEGRITA ALARCON MD Common Visit Codes: [id number] DISCH DAY >30min NEGRITA ALARCON MD Apr 25, 2025 10:28
--- NOTE | 2025-04-25 23:14 | DVHPN2 ---
Progress Note - Dictate Date Seen: Apr 25, 2025 Medical Necessity Reason Pt with a Central, PICC or Fol: No Subjective Patient was seen and evaluated in follow up. Patient has no new complaints at this time. Patient denies any cardiac symptoms. Patient is cardiac stable for discharge. vital signs Vital Sign Date Time Temp Pulse Resp B/P (MAP) Pulse Ox O2 Delivery O2 Flow Rate FiO2 04/25/25 08:30 98.0 71 16 156/69 (98) 98 98.0 04/25/25 07:32 Room Air* 0 21 Total Intake and Output 04/24/25 04/24/25 04/25/25 15:00 23:00 07:00 Intake Total 734 ml 480 ml Output Total 1 ml 1 ml Balance 733 ml 479 ml medications Current Medications Medications Dose Ordered Sig/Dayan Route Start Time Stop Time Status Last Admin Dose Admin Diagnostic Test (Pha) 1 strip ACHS 04/22/25 17:00 04/25/25 12:26 1 STRIP Insulin Human Regular HS SC 04/22/25 22:00 04/24/25 21:32 4 UNITS Insulin Human Regular AC SC 04/22/25 17:00 04/25/25 05:41 9 UNITS Dextrose 50 ml UD PRN IV 04/22/25 17:00 Sodium Chloride 10 ml Q8HR IV 04/22/25 22:00 04/25/25 05:41 10 ML Docusate Sodium 100 mg BIDPRN PRN PO 04/22/25 17:00 Acetaminophen 650 mg Q6HP PRN PO 04/22/25 17:00 Acetaminophen/ Hydrocodone Bitart 1 tab Q4HP PRN PO 04/22/25 17:00 04/25/25 10:54 1 TAB Ondansetron HCl 4 mg Q4HP PRN IV 04/22/25 17:00 04/22/25 18:41 4 MG Morphine Sulfate 2 mg Q4HPRN PRN IV 04/22/25 17:00 04/24/25 16:57 2 MG Pantoprazole Sodium 40 mg DAILY IV 04/23/25 10:00 04/25/25 10:54 40 MG objective GENERAL: Alert and oriented x 3. No acute distress. EYES: PERRL, EOMI. Anicteric. HENT: Moist mucous membranes. LUNGS: Clear to auscultation bilaterally. CARDIOVASCULAR: Regular rate and rhythm. ABDOMEN: Soft, nontender and nondistended. EXTREMITIES: Left hip TTP. NEUROLOGIC: No focal neurological deficits. SKIN: Warm, dry. laboratory and microbiology Laboratory Tests 04/25/25 05:44 Test 04/25/25 05:44 Range/Units Serum Glucose 266 H 74-106 mg/dL Problem List Acute fracture greater trochanter left femur. Uncontrolled diabetes. Hypertension. Hypercholesterolemia. Sepsis. Hyponatremia. History of chronic pancreatitis. Peripheral neuropathy. Assessment/Plan Continued all current supportive medical care. [place] for nunes management. GI prophylactics. Additional plan as per the hospital course. Plan discussed with: Patient OLVIN DANIEL MD Apr 25, 2025 12:32
== END 2025-04-25 12:41 | disposition home or self-care (01) | DRG 340 ==
LOC: ER 12:14 → OVERFLOW 16:58 → EAST 18:07
PROVIDERS: ADMIT Family Medicine; ATTEND Family Medicine
DX: S72.112A Displaced fracture of greater trochanter of left femur, initial encounter for closed fracture (principal); N17.0 Acute kidney failure with tubular necrosis; E11.42 Type 2 diabetes mellitus with diabetic polyneuropathy; E87.1 Hypo-osmolality and hyponatremia; I10 Essential (primary) hypertension; E78.00 Pure hypercholesterolemia, unspecified; K86.1 Other chronic pancreatitis; F17.210 Nicotine dependence, cigarettes, uncomplicated; Z90.49 Acquired absence of other specified parts of digestive tract; W01.0XXA Fall on same level from slipping, tripping and stumbling without subsequent striking against object, initial encounter; Y93.89 Activity, other specified; Y92.015 Private garage of single-family (private) house as the place of occurrence of the external cause; Y99.8 Other external cause status
CPT/HCPCS: 36415; 71046; 73700; 80053; 82962; 83036; 83735; 85025; 85610; 85730; 90715; 97110; 97116; 97163; 97530; G0378; J1815; J2405; J2470